=== PATIENT | male | born 1995 | race Caucasian/White ===

== ENCOUNTER 2018-05-31 12:37 | Emergency (ER) | payer OTHER ==
[~2018-05-31] VITALS: Ht 167.6 cm; Wt 82.1 kg
[2018-05-31 12:49] VITALS: Ht 167.6 cm; Wt 82.1 kg
[2018-05-31 14:15] VITALS: BP 116/66
== END 2018-05-31 14:15 | disposition home or self-care (01) ==
LOC: ED 12:37
DX: S61.032A Puncture wound without foreign body of left thumb without damage to nail, initial encounter (principal); X58.XXXA Exposure to other specified factors, initial encounter; Y93.89 Activity, other specified; Y92.89 Other specified places as the place of occurrence of the external cause; Y99.8 Other external cause status